=== PATIENT | male | born 1965 | race Two or more races ===

== ENCOUNTER 2024-09-10 15:18 | Emergency (ER) | payer OTHER ==
[~2024-09-10] VITALS: Ht 175.3 cm; Wt 59.0 kg
[2024-09-10 16:10] VITALS: BP 180/93; PULSE 72; RESP 16; O2SAT 97
--- NOTE | 2024-09-10 19:20 | DVH ---
EXAM: CT HEAD WITHOUT CONTRAST HISTORY: head inj COMPARISON: None TECHNIQUE: Axial images were obtained and reformatted in coronal and sagittal planes. All CT scans at this medical facility are performed using dose modulation techniques as appropriate t o a performed exam including the following: Automated exposure control was utilized; adjustment of th e MA and/or KV according to patient size; and use of iterative reconstruction technique. CT Dose: CTDI volume is 49 mGy. Dose-length product is 1079 mGy*cm FINDINGS: Supratentorial Region: No evidence for large acute territorial ischemia. No intracranial hemorrhage is noted. Posterior Fossa: No acute abnormality. Brainstem: Unremarkable. Sellar/Suprasellar Region: Unremarkable. Ventricles, Cisterns, Sulci: Age-appropriate. Orbits: Unremarkable. Paranasal Sinuses: Unremarkable. Mastoid Air Cells: Unremarkable. Vasculature: Unremarkable. Bones/Soft Tissues: No acute osseous abnormality. Skin aditi are seen in right paramedian fronta l scalp. Other: None. IMPRESSION: 1. No acute intracranial process.
--- NOTE | 2024-09-10 19:25 | DVH ---
CT OF THE CERVICAL SPINE WITHOUT CONTRAST HISTORY: head inj COMPARISON: None TECHNIQUE: Thin section helical axial scans were obtained from the skull base to the upper thoracic s pine. Sagittal and coronal reformatted images were obtained. One or more of the following radiation d ose reduction techniques were used for this examination: automated exposure control, adjustment of th e mA and/or kV according to patient size, use of iterative reconstruction technique. FINDINGS: No grossly displaced fractures or subluxations identified. Alignment is preserved. Vertebral body h eights are relatively maintained. Multilevel disc space narrowing and marginal osteophyte formation. This is most apparent from C4-C7. Mild associated multilevel narrowing of the bony spinal canal which is otherwise grossly patent. Prevertebral soft tissues appear within normal limits. IMPRESSION: No displaced fractures or subluxations identified. Degenerative changes.
--- NOTE | 2024-09-10 19:53 | ED.PDOC ---
History of Present Illness HPI Comments 58-year-old male complaining of head pain neck pain. Patient states he was at work when a piece of metal fell off a top or active approximate 10-15 feet up in hit him in the head. Had a small laceration to the frontal scalp. Did go to a different urgent care and had eight aditi placed. They advised him to come to the emergency department for further evaluation he was neck pain and head pain. Patient states no loss of consciousness. Patient states headache and pain is mild. Nothing makes it better, nothing makes it worse. Chief Complaint: Head Injury Time Seen by MD: 15:58 Reviewed Notes: Nurses Notes Allergies: Coded Allergies: NO KNOWN ALLERGIES (Unverified , 09/10/24) Information Source: Patient Mode of Arrival: Ambulatory Past Medical History PAST MEDICAL HISTORY: Denies Surgical History: Denies all surgeries Constitutional: denies: chills, diaphoresis, fatigue, fever, malaise, sweats, weakness, others EENTM: denies: blurred vision, double vision, ear bleeding, ear discharge, ear drainage, ear pain, ear ringing, eye pain, eye redness, hearing loss, mouth pain, mouth swelling, nasal discharge, nose bleeding, nose congestion, nose pain, photophobia, tearing, throat pain, throat swelling, voice changes, others Respiratory: denies: cough, hemoptysis, orthopnea, SOB at rest, shortness of breath, SOB with excertion, stridor, wheezing, others Cardiovascular: denies: chest pain, dizzy spells, diaphoresis, Dyspnea on exertion, edema, irregular heart beat, left arm pain, lightheadedness, palpitations, PND, syncope, others Gastrointestinal: denies: abdomen distended, abdominal pain, blood streaked bowels, constipated, diarrhea, dysphagia, difficulty swallowing, hematemesis, melena, nausea, poor appetite, poor fluid intake, rectal bleeding, rectal pain, vomiting, others Genitourinary: denies: burning, dysuria, flank pain, frequency, hematuria, incontinence, penile discharge, penile sore, pain, testicle pain, testicle swelling, urgency, others Neurological: denies: dizziness, fainting, headache, left sided numbness, left sided weakness, numbness, paresthesia, pre-existing deficit, right sided numbness, right sided weakness, seizure, speech problems, tingling, tremors, weakness, others Musculoskeletal: reports: joint pain, muscle pain, muscle stiffness; denies: back pain, gout, neck pain, others Integumetry: denies: bruises, change in color, change in hair/nails, dryness, l aceration, lesions, lumps, rash, wounds, others Physical Exam General Appearance: No Apparent Distress, Normal HEENT: Head (Laceration to the front of the scalp with eight aditi noted.), Normal ENT Inspection, Pharynx Normal, TMs Normal Neck: Full Range of Motion, Non-Tender, Normal, Normal Inspection Respiratory: Chest Non-Tender, Lungs Clear, No Accessory Muscle Use, No Respiratory Distress, Normal Breath Sounds Cardiovascular: No Edema, No JVD, No Murmur, No Gallop, Normal Peripheral Pulses, Regular Rate/Rhythm Breast Exam: Deferred Gastrointestinal: No Organomegaly, Non Tender, No Pulsatile Mass, Normal Bowel Sounds, Soft Genitalia: Deferred Pelvic: Deferred Rectal: Deferred Extremities: No calf tenderness, Normal capillary refill, Normal inspection, Normal range of motion, Non-tender, No pedal edema Musculoskeletal : Apperance: Normal Neurologic: Alert, blowing engineer II-XII nml as Tested, No Motor Deficits, Normal Affect, Normal Mood, No Sensory Deficits Cerebellar Function: Normal Reflexes: Normal Skin: Dry, Normal Color, Warm Lymphatic: No Adenopathy Was a procedure done? Was a procedure done?: No Differential Dx Considerations may include: Cervical fracture, closed head injury, traumatic brain injury. Concussion. X-Ray, Labs, Meds, VS Vital Signs Date Time Temp Pulse Resp B/P (MAP) Pulse Ox O2 Delivery O2 Flow Rate FiO2 09/10/24 16:10 98.0 72 16 180/93 (122) 97 X-Ray, Labs, Meds, VS Comment Imaging: X-rays and CT scans were reviewed and interpreted by this provider, imaging shows no fractures and no pathological disease. Pending radiology review. Laboratory: Labs reviewed and interpreted by this provider. No significant abnormalities noted. Patient has prior medical visits reviewed. Med reconciliation performed Vital signs reviewed Time of 1ST Reevaluation: 19:53 Reevaluation 1ST: Improved Patient Education/Counseling: Diagnosis, Treatment, Need For Follow Up (Patient advised to follow-up in the emergency room in the next 24 to 48 hours if symptoms do not improve. Advised follow-up with PCP in the next 3 to 5 days. Patient verbalized understanding. ) Family Education/Counseling: Diagnosis Departure 1 Departure Time of Disposition: 19:53 Impression: Primary Impression: Closed head injury Qualified Codes: S09.90XA - Unspecified injury of head, initial encounter Disposition: HOME / SELF CARE / HOMELESS Condition: Fair Discharged With: Self Critical Care Note Critical Care Time?: No Stability Stability form required: No Heart Score Heart Score: Heart Score Response (Comments) Value History N/A 0 EKG N/A 0 Age N/A 0 Risk Factors N/A 0 Troponin N/A 0 Total 0 YOUSIF ONOFREP Sep 10, 2024 19:53
== END 2024-09-10 20:23 | disposition home or self-care (01) ==
LOC: ER 15:24
DX: S01.01XD Laceration without foreign body of scalp, subsequent encounter (principal); W22.8XXA Striking against or struck by other objects, initial encounter; Y93.89 Activity, other specified; Y92.89 Other specified places as the place of occurrence of the external cause; Y99.8 Other external cause status
CPT/HCPCS: 70450; 72125